=== PATIENT | male | born 1985 | race Caucasian/White ===

== ENCOUNTER 2019-03-18 23:51 | Emergency (ER) | payer OTHER ==
[~2019-03-18] VITALS: Ht 180.3 cm; Wt 90.7 kg
[~2019-03-18 23:51] MED LIST: CYCL10 PO; HYDACE5 PO; IBUP600 PO; OXYACE5T PO; RXOXYACE PO; RXPROM25 PO; TAMS.4ER PO
[2019-03-19] MEDS ORDERED: Aerochamber1 EACH MC (01:30)
[2019-03-19] MEDS ORDERED: ALBU90OI INH (01:30)
== END 2019-03-19 01:44 | disposition home or self-care (01) ==
LOC: ER 23:51
DX: J45.901 Unspecified asthma with (acute) exacerbation (principal); F17.200 Nicotine dependence, unspecified, uncomplicated
CPT/HCPCS: 71046; 94640; 99283-25

== ENCOUNTER → 2019-05-06 | Outpatient (CLI) | payer OTHER ==
[~2019-05-06] MED LIST changes: +ALBU90OI INH; +Aerochamber1 EACH MC
[2019-05-07 22:06] LABS: CHLAMYDIA TRACHOMATIS, NAA Negative (Negative); NEISSERIA GONORRHOEAE, NAA Negative (Negative)
== END ==
LOC: LAB 18:40 → LAB SHORT 18:40
PROVIDERS: Registered Nurse Community Health
DX: Z11.3 Encounter for screening for infections with a predominantly sexual mode of transmission (principal); Z72.51 High risk heterosexual behavior
CPT/HCPCS: 87491; 87591